=== PATIENT | male | born 1975 | race Caucasian/White ===

== ENCOUNTER 2017-05-10 08:24 | Emergency (ER) | payer SELFPAY ==
[2017-05-10 08:59] VITALS: BP 151/82
--- NOTE | 2017-05-10 09:05 | EDM.PDOC ---
ED HPI GENERAL MEDICAL PROBLEM - General Chief Complaint: Upper Extremity Injury/Pain Stated Complaint: RIGHT PINKIE FINGER PAIN Time Seen by Provider: 05/10/17 09:00 - History of Present Illness INITIAL COMMENTS - FREE TEXT/NARRATIVE: HISTORY AND PHYSICAL: History of present illness: Patient 41-year-old white male presents with concern of acute injury to fifth digit of his right hand this was a crush injury he denies other trauma or concern Review of systems: As per history of present illness and below otherwise all systems reviewed and negative. Past medical history: As per history of present illness and as reviewed below otherwise noncontributory. Surgical history: As per history of present illness and as reviewed below otherwise noncontributory. Social history: No reported history of drug or alcohol abuse. Family history: As per history of present illness and as reviewed below otherwise noncontributory. Physical exam: HEENT: Atraumatic, normocephalic, pupils reactive, negative for conjunctival pallor or scleral icterus, mucous membranes moist, throat clear, neck supple, nontender, trachea midline. Lungs: Clear to auscultation, breath sounds equal bilaterally, chest nontender. Heart: S1S2, regular, negative for clicks, rubs, or JVD. Abdomen: Soft, nondistended, nontender. Negative for masses or hepatosplenomegaly. Negative for costovertebral tenderness. Pelvis: Stable nontender. Genitourinary: Deferred. Rectal: Deferred. Extremities: Tenderness and swelling noted with a small subungual hematoma that fifth digit is no gross deformity no point tenderness EMS neurovascular is unremarkable tendon exam is without obvious deficit. Neuro: Awake, alert, oriented. Cranial nerves II through XII unremarkable. Cerebellum unremarkable. Motor and sensory unremarkable throughout. Exam nonfocal. Diagnostics: X-ray right hand attention fifth digit Therapeutics: Subungual hematoma was drained via cautery aluminum/foam splint was applied Impression: #1 acute injury fifth digit right hand (blunt force trauma) Definitive disposition and diagnosis as appropriate pending reevaluation and review of above. - Related Data Allergies Allergy/AdvReac Type Severity Reaction Status Date / Time azithromycin [From Zithromax] Allergy Airway Verified 05/10/17 08:52 Tightness cephalexin [From Keflex] Allergy Airway Verified 05/10/17 08:52 Tightness Penicillins Allergy Anaphylactic Verified 05/10/17 08:52 Shock Home Meds: Home Meds Pantoprazole Sodium [Protonix] 40 mg PO Q24H #30 tablet. 03/07/17 [Rx] Past Medical History - Past Health History Medical/Surgical History: Denies Medical/Surgical History Gastrointestinal History: Reports: Other (See Below) Other Gastrointestinal History: states "I had an ulcer one time." Genitourinary History: Reports: Renal Calculus Musculoskeletal History: Reports: Back Pain, Chronic Other Musculoskeletal History: pain to right foot Psychiatric History: Reports: Addiction Other Psychiatric History: alcohol - Infectious Disease History Infectious Disease History: Reports: Chicken Pox - Past Surgical History GI Surgical History: Reports: Appendectomy Male Surgical History: Reports: Ureteral Stent Neurological Surgical History: Reports: Lumbar Spine Social & Family History - Family History Family Medical History: Noncontributory - Tobacco Use Smoking Status *Q: Current Every Day Smoker Years of Tobacco use: 25 Packs/Tins Daily: 1.5 - Caffeine Use Caffeine Use: Reports: Coffee Other Caffeine Use: unknown - Alcohol Use Days Per Week of Alcohol Use: 1 Number of Drinks Per Day: 2 Total Drinks Per Week: 2 - Recreational Drug Use Recreational Drug Use: No Other Recreational Drug Type: patient denies drug use - Living Situation & Occupation Living situation: Reports: , with Significant Other (Fiance), with Family (3 kids) 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 ED EXAM, GENERAL - Physical Exam Exam: See Below (See dictation) Course - Vital Signs Last Recorded V/S: Last Vital Signs Temp 36.1 C 05/10/17 08:49 Pulse 85 05/10/17 08:49 Resp 18 05/10/17 08:49 BP 151/82 H 05/10/17 08:49 Pulse Ox 97 05/10/17 08:49 - Orders/Labs/Meds Orders: Active Orders 24 hr Category Date Time Status Hand 2V Rt [CR] Stat Exams 05/10/17 08:58 Taken Departure - Departure Time of Disposition: 09:39 Disposition: Home, Self-Care 01 Condition: Good Clinical Impression: Subungual hematoma, Hand injury - Discharge Information Referrals: PCP,None [Primary Care Provider] - Forms: ED Department Discharge Additional Instructions: The following information is given to patients seen in the emergency department who are being discharged to home. This information is to outline your options for follow-up care. We provide all patients seen in our emergency department with a follow-up referral. The need for follow-up, as well as the timing and circumstances, are variable depending upon the specifics of your emergency department visit. If you don't have a primary care physician on staff, we will provide you with a referral. We always advise you to contact your personal physician following an emergency department visit to inform them of the circumstance of the visit and for follow-up with them and/or the need for any referrals to a consulting specialist. The emergency department will also refer you to a specialist when appropriate. This referral assures that you have the opportunity for followup care with a specialist. All of these measure are taken in an effort to provide you with optimal care, which includes your followup. Under all circumstances we always encourage you to contact your private physician who remains a resource for coordinating your care. When calling for followup care, please make the office aware that this follow-up is from your recent emergency room visit. If for any reason you are refused follow-up, please contact the [facility] emergency department at and asked to speak to the emergency department charge nurse. Splint as directed Motrin/Tylenol as directed follow primary medical doctor - My Orders Last 24 Hours: My Active Orders 05/10/17 08:58 Hand 2V Rt [CR] Stat - Assessment/Plan Last 24 Hours: My Active Orders 05/10/17 08:58 Hand 2V Rt [CR] Stat
--- NOTE | 2017-05-12 13:15 | CR ---
EXAM DATE: 05/10/17 PATIENT'S AGE: 41 Patient: JEREMIAH DAN Facility: [place], [place] Site . Site : [id number] Study: XRay Extremity Right [id number]/28/2017 9:28:53 AM Ordering Physician: Doctor Merritt Final Report: HISTORY: Right hand pain. TECHNIQUE: Two views of the right hand. COMPARISON: No prior. FINDINGS: There is a nondisplaced acute fracture of the distal phalanx of the 5th digit of the right hand. This involves the distal tuft and likely distal metaphysis. No involvement of articular surfaces. Osseous structures otherwise intact. No malalignment. No erosive change. No radiopaque foreign body. IMPRESSION: Acute nondisplaced fracture of the distal phalanx of the 5th digit of the right hand. Dictated by Luther Ojeda MD @ 05/10/2017 9:36:10 AM Dictated by: Luther Ojeda MD @ 05/10/2017 09:36:12 (Electronic Signature) Report Signed by Proxy. [facility]OSPITALKadie
== END 2017-05-10 09:54 | disposition home or self-care (01) ==
LOC: MW.ED 08:24
DX: S60.151A Contusion of right little finger with damage to nail, initial encounter (principal); F17.210 Nicotine dependence, cigarettes, uncomplicated; Z88.0 Allergy status to penicillin; Z88.1 Allergy status to other antibiotic agents; W23.1XXA Caught, crushed, jammed, or pinched between stationary objects, initial encounter
CPT/HCPCS: 11740; 73120-26-RT; 73120-RT; 99282; 99283

== ENCOUNTER 2018-11-14 17:08 | Emergency (ER) | payer SELFPAY ==
[2018-11-14] MEDS ORDERED: Ondansetron 4 MG/2 ML SDV IVPUSH ONE (18:24)
[2018-11-14] MEDS ORDERED: Ketorolac 30 MG/ML SDV IVPUSH ONE (18:24)
[2018-11-14] MEDS ORDERED: Sodium Chloride 0.9% 1,000 ML IV ONE (18:24)
--- NOTE | 2018-11-14 18:26 | EDM.PDOC ---
ED HPI GENERAL MEDICAL PROBLEM - General Chief Complaint: Gastrointestinal Problem Stated Complaint: GALLSTONES Time Seen by Provider: 11/14/18 18:11 Source of Information: Reports: Patient History Limitations: Reports: No Limitations - History of Present Illness INITIAL COMMENTS - FREE TEXT/NARRATIVE: HISTORY AND PHYSICAL: History of present illness: Patient is a 43-year-old male who presents to the ED today with concern of right sided abdominal pain that he rates an 8 out of 10. Patient states 2 weeks ago he was seen in [place] and was worked up for intermittent abdominal pain. At that time, he was told he had gallstones and he had something in his kidney, although he is not sure what this is. Patient states for the past 2 weeks he has been okay, but he was eating pizza earlier today and suddenly felt really sick after. Patient states he has vomited twice since the onset of symptoms. Patient states his abdominal pain today is different than his prior workup abdominal pain and is different in nature although he isn't really able to quantify this. Patient states he has normal bowel movements and his last bowel movement was yesterday. Patient denies any other symptoms at this time. Patient denies fever, chills, chest pain, shortness of breath, or cough. Denies headache, neck stiff ness, change in vision, syncope, or near syncope. Denies diarrhea, constipation, or dysuria. Patient has been eating and drinking appropriately prior to onset of symptoms. Review of systems: As per history of present illness and below otherwise all systems reviewed and negative. Past medical history: As per history of present illness and as reviewed below otherwise noncontributory. Surgical history: As per history of present illness and as reviewed below otherwise noncontributory. Social history: See social history for further information Family history: As per history of present illness and as reviewed below otherwise noncontributory. Physical exam: General: Patient is alert, oriented, and in no acute distress. Patient sitting comfortably on exam table. HEENT: Atraumatic, normocephalic, pupils equal and reactive bilaterally, negative for conjunctival pallor or scleral icterus, mucous membranes moist, TMs normal bilaterally, throat clear, neck supple, nontender, trachea midline. No drooling or trismus noted. No meningeal signs. No hot potato voice noted. Lungs: Clear to auscultation, breath sounds equal bilaterally, chest nontender. Heart: S1S2, regular rate and rhythm without overt murmur Abdomen: Soft, nondistended, nontender. Negative for masses or hepatosplenomegaly. Negative for costovertebral tenderness. Pelvis: Stable nontender. Genitourinary: Deferred. Rectal: Deferred. Skin: Intact, warm, dry. No lesions or rashes noted. Extremities: Atraumatic, negative for cords or calf pain. Neurovascular unremarkable. Neuro: Awake, alert, oriented. Cranial nerves II through XII unremarkable. Cerebellum unremarkable. Motor and sensory unremarkable throughout. Exam nonfocal. Notes: Discussed the importance for follow-up with a primary care provider. Voices understanding and is agreeable to plan of care. Denies any further questions or concerns at this time. Diagnostics: CBC, CMP, UA, lipase, H. pylori, EKG, abdominal pelvic CT Therapeutics: Saline, Zofran, Toradol Prescription: None Impression: Right upper quadrant pain, unspecified Transaminitis Kidney stone, bilateral without hydronephrosis Plan: 1. You can alternate ibuprofen and Tylenol as directed for pain and discomfort. 2. Follow-up with her primary care provider repeat lab work. 3. Return to the ED as needed and as discussed. Definitive disposition and diagnosis as appropriate pending reevaluation and review of above. Right Upper Abdomen Pain Score (Numeric/FACES): 9 - Related Data Allergies Allergy/AdvReac Type Severity Reaction Status Date / Time azithromycin [From Zithromax] Allergy Airway Verified 11/14/18 17:42 Tightness cephalexin [From Keflex] Allergy Airway Verified 11/14/18 17:42 Tightness Penicillins Allergy Anaphylactic Verified 11/14/18 17:42 Shock Home Meds: Home Meds Pantoprazole Sodium [Protonix] 40 mg PO Q24H #30 tablet. 03/07/17 [Rx] Past Medical History - Past Health History Medical/Surgical History: Denies Medical/Surgical History HEENT History: Reports: None Cardiovascular History: Reports: None Respiratory History: Reports: None Gastrointestinal History: Reports: Other (See Below) Other Gastrointestinal History: states "I had an ulcer one time." Genitourinary History: Reports: Renal Calculus Musculoskeletal History: Reports: Back Pain, Chronic, Fracture Other Musculoskeletal History: pain to right foot Psychiatric History: Reports: Addiction, Anxiety Other Psychiatric History: alcohol - Infectious Disease History Infectious Disease History: Reports: Chicken Pox - Past Surgical History GI Surgical History: Reports: Appendectomy Male Surgical History: Reports: Ureteral Stent Neurological Surgical History: Reports: Lumbar Spine Social & Family History - Family History Family Medical History: Noncontributory - Tobacco Use Smoking Status *Q: Current Every Day Smoker Years of Tobacco use: 19 Packs/Tins Daily: 3 - Caffeine Use Caffeine Use: Reports: Coffee Other Caffeine Use: unknown - Recreational Drug Use Recreational Drug Use: No - Living Situation & Occupation Living situation: Reports: , with Significant Other (Fiance), with Family (3 kids) 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 ED EXAM, GI/ABD - Physical Exam Exam: See Below (See dictation) Course - Vital Signs Last Recorded V/S: Last Vital Signs Temp 36.8 C 11/14/18 17:38 Pulse 91 11/14/18 17:38 Resp BP 141/86 H 11/14/18 17:38 Pulse Ox 97 11/14/18 17:38 - Orders/Labs/Meds Orders: Active Orders 24 hr Category Date Time Status EKG Documentation Completion [RC] STAT Care 11/14/18 19:01 Active Labs: Laboratory Tests 11/14/18 11/14/18 11/14/18 Range/Units 18:24 18:40 18:40 WBC 5.69 (4.0-11.0) K/uL RBC 5.14 (4.50-5.90) M/uL Hgb 16.6 (13.0-17.0) g/dL Hct 47.3 (38.0-50.0) % MCV 92.0 (80.0-98.0) fL MCH 32.3 H (27.0-32.0) pg MCHC 35.1 (31.0-37.0) g/dL RDW Std Deviation 50.6 (28.0-62.0) fl RDW Coeff of Juan Daniel 15 (11.0-15.0) % Plt Count 171 (150-400) K/uL MPV 9.10 (7.40-12.00) fL Neut % (Auto) 64.5 (48.0-80.0) % Lymph % (Auto) 27.4 (16.0-40.0) % [place] % (Auto) 7.0 (0.0-15.0) % Eos % (Auto) 0.7 (0.0-7.0) % Baso % (Auto) 0.4 (0.0-1.5) % Neut # (Auto) 3.7 (1.4-5.7) K/uL Lymph # (Auto) 1.6 (0.6-2.4) K/uL [place] # (Auto) 0.4 (0.0-0.8) K/uL Eos # (Auto) 0.0 (0.0-0.7) K/uL Baso # (Auto) 0.0 (0.0-0.1) K/uL Nucleated RBC % 0.0 /100WBC Nucleated RBCs # 0 K/uL Sodium 140 (136-148) mmol/L Potassium 3.8 (3.5-5.1) mmol/L Chloride 104 (98-107) mmol/L Carbon Dioxide 25.5 (21.0-32.0) mmol/L BUN 11 (7.0-18.0) mg/dL Creatinine 0.8 (0.8-1.3) mg/dL Est Cr Clr Drug Dosing 112.46 mL/min Estimated GFR (MDRD) > 60.0 ml/min Glucose 99 (74-106) mg/dL Calcium 8.5 (8.5-10.1) mg/dL Total Bilirubin 0.5 (0.2-1.0) mg/dL AST 48 H (15-37) IU/L ALT 116 H (14-63) IU/L Alkaline Phosphatase 106 (46-116) U/L Total Protein 6.8 (6.4-8.2) g/dL Albumin 3.7 (3.4-5.0) g/dL Globulin 3.1 (2.6-4.0) g/dL Albumin/Globulin Ratio 1.2 (0.9-1.6) Lipase 107 (73-393) U/L Urine Color RED Urine Appearance SLT CLOUDY Urine pH 8.5 H (5.0-8.0) Ur Specific [place] 1.015 (1.001-1.035) Urine Protein 30 H (NEGATIVE) mg/dL Urine Glucose (UA) NEGATIVE (NEGATIVE) mg/dL Urine Ketones NEGATIVE (NEGATIVE) mg/dL Urine Occult Blood LARGE H (NEGATIVE) Urine Nitrite NEGATIVE (NEGATIVE) Urine Bilirubin NEGATIVE (NEGATIVE) Urine Urobilinogen 0.2 (<2.0) EU/dL Ur Leukocyte Esterase NEGATIVE (NEGATIVE) Urine RBC TOO NUMEROUS TO CT (0-2/HPF) Urine WBC 0-3 (0-5/HPF) Ur Epithelial Cells OCCASIONAL (NONE-FEW) Amorphous Sediment LIGHT (NEGATIVE) Urine Bacteria FEW (NEGATIVE) H. pylori IgG Antibody (NEG) 11/14/18 Range/Units 18:40 WBC (4.0-11.0) K/uL RBC (4.50-5.90) M/uL Hgb (13.0-17.0) g/dL Hct (38.0-50.0) % MCV (80.0-98.0) fL MCH (27.0-32.0) pg MCHC (31.0-37.0) g/dL RDW Std Deviation (28.0-62.0) fl RDW Coeff of Juan Daniel (11.0-15.0) % Plt Count (150-400) K/uL MPV (7.40-12.00) fL Neut % (Auto) (48.0-80.0) % Lymph % (Auto) (16.0-40.0) % [place] % (Auto) (0.0-15.0) % Eos % (Auto) (0.0-7.0) % Baso % (Auto) (0.0-1.5) % Neut # (Auto) (1.4-5.7) K/uL Lymph # (Auto) (0.6-2.4) K/uL [place] # (Auto) (0.0-0.8) K/uL Eos # (Auto) (0.0-0.7) K/uL Baso # (Auto) (0.0-0.1) K/uL Nucleated RBC % /100WBC Nucleated RBCs # K/uL Sodium (136-148) mmol/L Potassium (3.5-5.1) mmol/L Chloride (98-107) mmol/L Carbon Dioxide (21.0-32.0) mmol/L BUN (7.0-18.0) mg/dL Creatinine (0.8-1.3) mg/dL Est Cr Clr Drug Dosing mL/min Estimated GFR (MDRD) ml/min Glucose (74-106) mg/dL Calcium (8.5-10.1) mg/dL Total Bilirubin (0.2-1.0) mg/dL AST (15-37) IU/L ALT (14-63) IU/L Alkaline Phosphatase (46-116) U/L Total Protein (6.4-8.2) g/dL Albumin (3.4-5.0) g/dL Globulin (2.6-4.0) g/dL Albumin/Globulin Ratio (0.9-1.6) Lipase (73-393) U/L Urine Color Urine Appearance Urine pH (5.0-8.0) Ur Specific [place] (1.001-1.035) Urine Protein (NEGATIVE) mg/dL Urine Glucose (UA) (NEGATIVE) mg/dL Urine Ketones (NEGATIVE) mg/dL Urine Occult Blood (NEGATIVE) Urine Nitrite (NEGATIVE) Urine Bilirubin (NEGATIVE) Urine Urobilinogen (<2.0) EU/dL Ur Leukocyte Esterase (NEGATIVE) Urine RBC (0-2/HPF) Urine WBC (0-5/HPF) Ur Epithelial Cells (NONE-FEW) Amorphous Sediment (NEGATIVE) Urine Bacteria (NEGATIVE) H. pylori IgG Antibody NEGATIVE (NEG) Meds: Medications Discontinued Medications Generic Name Dose Route Start Last Admin Trade Name Freq PRN Reason Stop Dose Admin Sodium Chloride 1,000 mls @ 999 mls/hr 11/14/18 18:24 11/14/18 18:41 Normal Saline IV 11/14/18 19:24 999 mls/hr BOLUS ONE Administration Ketorolac Tromethamine 30 mg 11/14/18 18:24 11/14/18 18:41 Toradol IVPUSH 11/14/18 18:25 30 mg ONETIME ONE Administration Ondansetron HCl 4 mg 11/14/18 18:24 11/14/18 18:41 Zofran IVPUSH 11/14/18 18:25 4 mg ONETIME ONE Administration Departure - Departure Time of Disposition: 19:59 Disposition: Home, Self-Care 01 Clinical Impression: Transaminitis Abdominal pain Qualifiers: Abdominal location: right upper quadrant Qualified Code(s): R10.11 - Right upper quadrant pain - Discharge Information Referrals: PCP,None [Primary Care Provider] - Forms: ED Department Discharge Additional Instructions: The following information is given to patients seen in the emergency department who are being discharged to home. This information is to outline your options for follow-up care. We provide all patients seen in our emergency department with a follow-up referral. The need for follow-up, as well as the timing and circumstances, are variable depending upon the specifics of your emergency department visit. If you don't have a primary care physician on staff, we will provide you with a referral. We always advise you to contact your personal physician following an emergency department visit to inform them of the circumstance of the visit and for follow-up with them and/or the need for any referrals to a consulting specialist. The emergency department will also refer you to a specialist when appropriate. This referral assures that you have the opportunity for follow-up care with a specialist. All of these measure are taken in an effort to provide you with optimal care, which includes your follow-up. Under all circumstances we always encourage you to contact your private physician who remains a resource for coordinating your care. When calling for follow-up care, please make the office aware that this follow-up is from your recent emergency room visit. If for any reason you are refused follow-up, please contact the [facility] Emergency Department at and asked to speak to the emergency department charge nurse. [facility] [address] [place] [id number] [place] [address] 1. You can alternate ibuprofen and Tylenol as directed for pain and discomfort. 2. Follow-up with your primary care provider repeat lab work. 3. Return to the ED as needed and as discussed. - My Orders Last 24 Hours: My Active Orders 11/14/18 19:01 EKG Documentation Completion [RC] STAT - Assessment/Plan Last 24 Hours: My Active Orders 11/14/18 19:01 EKG Documentation Completion [RC] STAT
[2018-11-14 19:12] LABS: CHLORIDE,CL 104 mmol/L (98-107); SODIUM,NA 140 mmol/L (136-148)
--- NOTE | 2018-11-14 19:52 | CT ---
INDICATION: Abdominal pain with hematuria TECHNIQUE: CT Abdomen and pelvis without i.v. contrast. Coronal and sagittal reformats were obtained. COMPARISON: None FINDINGS: Moderate degradation of image quality is present due to the patient`s inability to maintain a breath hold. Lower chest: Unremarkable. Liver: Unremarkable. Spleen: Unremarkable. Pancreas: Unremarkable. Gallbladder: Unremarkable. Kidney: There is a punctate 1 mm stone seen in the upper pole of each kidney. No ureteral stones or calculi seen. Adrenal: Unremarkable. Bowel: Unremarkable. The appendix is not identified. Vascular: Unremarkable. Lymph: Unremarkable. Peritoneum: Unremarkable. No pneumoperitoneum is seen. No significant ascites is noted. Pelvis: Unremarkable. Soft tissue: Unremarkable. A neurostimulator is present in the left gluteal region with leads entering the spinal canal at L1-2. Bone: Unremarkable. IMPRESSION: 1. There is a punctate 1 mm stone seen in the upper pole of each kidney. No ureteral stones or calculi seen. Dictated by Saji Hamlin MD @ 11/14/2018 7:49:09 PM Please note that all CT scans at this facility use dose modulation, iterative reconstruction, and/or weight-based dosing when appropriate to reduce radiation dose to as low as reasonably achievable. Dictated by: Saji Hamlin MD @ 11/14/2018 19:49:51 (Electronically Signed)
[2018-11-14 20:09] VITALS: BP 132/86
== END 2018-11-14 20:08 | disposition home or self-care (01) ==
LOC: MW.ED 17:08
DX: N20.0 Calculus of kidney (principal); R10.11 Right upper quadrant pain; R74.0 Nonspecific elevation of levels of transaminase and lactic acid dehydrogenase [LDH]; F17.210 Nicotine dependence, cigarettes, uncomplicated; Z88.1 Allergy status to other antibiotic agents; Z88.0 Allergy status to penicillin
CPT/HCPCS: 36415; 74176; 80053; 81001; 83690; 85025; 86677; 93005; 96361; 96374; 99284; J1885; J2405; J7040